=== PATIENT | female | born 1985 | race Two or more races ===

== ENCOUNTER 2019-04-30 08:59 | Emergency (ER) | payer MEDICAID ==
[2019-04-30 09:15] VITALS: BP 151/66
--- NOTE | 2019-04-30 09:57 | PHYS DOC ---
Past Medical History Past Medical History: Hypothyroid Past Surgical History: No Surgical History Alcohol Use: None Drug Use: None Adult General Chief Complaint Chief Complaint: [facility] HPI Patient is a 33 year old female who presents to the emergency department with complaints of frequent headaches, feeling like her head is fuzzy, and fatigue after a recent head injury. Patient states on April 20, 2019 she was playing tag with her child inside of her mother's home when she accidentally ran into a glass door. Patient states she struck her forehead on the door but denies losing consciousness, neck pain, nausea, or vomiting since the injury. She denies any double vision, or blurred vision. She states that the light has seemed brighter and that bright lights have bothered her. She also states that if she moves her head quickly from side to side it makes her feel dizzy. She denies any numbness, tingling, weakness, slurred speech, difficulty speaking, or incoordination. She currently rates her discomfort a 2 out of 10 on the pain scale, she denies any alleviating factors. Patient states she has not been taking any Tylenol or ibuprofen for relief of her symptoms. All other ROS is neg unless otherwise noted in HPI.See Above Review of Systems Review of Systems Constitutional: Denies fever Eyes: Denies change in visual acuity, redness, or eye pain; see HPI[] HENT: Denies nasal congestion or sore throat [] Respiratory: Denies cough or shortness of breath [] Cardiovascular: No additional information not addressed in HPI [] GI: Denies abdominal pain, nausea, vomiting, or diarrhea [] Musculoskeletal: Denies back pain or joint pain [] Integument: Denies rash or skin lesions [] Neurologic: Denies headache, focal weakness or sensory changes [] Endocrine: Denies polyuria or polydipsia [] All other systems were reviewed and found to be within normal limits, except as documented in this note. Allergies Allergies Allergies Coded Allergies Type Severity Reaction Last Updated Verified famotidine Allergy Intermediate HIVES 04/30/19 Yes Physical Exam Physical Exam Constitutional: Well developed, well nourished, no acute distress, non-toxic appearance. [] HENT: Normocephalic, atraumatic, bilateral external ears normal, lateral TMs normal, posterior pharynx normal oropharynx moist, no oral exudates, nose normal. [] Eyes: PERRLA, EOMI, conjunctiva normal, no discharge. [] Neck: Normal range of motion, no tenderness, supple, no stridor. [] Cardiovascular:Heart rate regular rhythm Lungs & Thorax: Respirations even and unlabored, no retractions, no respiratory distress Skin: Warm, dry, no erythema, no rash. [] Back: No tenderness Extremities: No cyanosis, ROM intact, no edema. [] Neurologic: Alert and oriented X 3, normal motor function, normal sensory function, cranial nerves II-VII intact, no focal deficits noted. [] Psychologic: Affect normal, judgement normal, mood normal. [] Current Patient Data Vital Signs Vital Signs Date Time Temp Pulse Resp B/P (MAP) Pulse Ox O2 Delivery O2 Flow Rate FiO2 04/30/19 09:15 97.6 74 20 151/66 (94) 96 Room Air 97.6 EKG EKG [] Radiology/Procedures Radiology/Procedures [] Course & Med Decision Making Course & Med Decision Making Pertinent Labs and Imaging studies reviewed. (See chart for details) She is a 33-year-old female who presented to the emergency room with complaints of frequent headaches after recent head injury. Her symptoms are consistent with postconcussive syndrome. Patient was provided with work excuse for today and tomorrow. She stated that she had an appointment with her primary care doctor next Friday. She was encouraged to go home and rest, avoid screen exposure, and get at least 8 hours of sleep. May take Tylenol or ibuprofen as needed for pain. Follow-up with her primary care doctor next week as planned. Return to the ER symptoms worsen. Patient verbalized an understanding of home care, medications, follow-up, and return to ED instructions and was in agreement with the plan of care. [] Dragon Disclaimer Dragon Disclaimer This electronic medical record was generated, in whole or in part, using a voice recognition dictation system. Departure Departure Impression: Primary Impression: Post-concussion headache Additional Impression: Post-concussion syndrome Disposition: HOME, SELF-CARE Condition: STABLE Referrals: SUNNY VIERA MD (PCP) Patient Instructions: Concussion and Brain Injury, [id number] Additional Instructions: Tylenol or ibuprofen as needed for pain. Follow the concussion instructions provided. Home to rest, avoid screen exposure. Follow up with your primary care doctor next week as planned. Return to the ER if symptoms worsen. Problem Qualifiers TIMI TORRES APRN Apr 30, 2019 09:57
== END 2019-04-30 10:08 | disposition home or self-care (01) ==
LOC: ER 08:59
DX: G44.309 Post-traumatic headache, unspecified, not intractable (principal); F07.81 Postconcussional syndrome; E03.9 Hypothyroidism, unspecified; Z88.8 Allergy status to other drugs, medicaments and biological substances
CPT/HCPCS: 99281